=== PATIENT | female | born 1930 | race Two or more races ===

== ENCOUNTER 2018-03-31 12:34 | Inpatient (IN) | payer OTHER ==
[~2018-03-31] VITALS: Ht 142.2 cm; Wt 59.0 kg
[2018-03-31 12:40] VITALS: Ht 142.2 cm; Wt 59.0 kg
[2018-03-31 12:56] LABS: BASOPHIL % 1.1 % (0-2); PLATELET COUNT 156 x10^3mcL (130-400); RED CELL DISTRIBUTION WIDTH 14.1 % (11.5-14.5)
[2018-03-31 13:57] LABS: CALCIUM 8.7 mg/dL (8.5-10.1); CARBON DIOXIDE 30.3 mmol/L (21-32); CHLORIDE SERUM 104 mmol/L (98-107); CREATININE SERUM 0.7 mg/dL (0.6-1.0); GLUCOSE SERUM 124 mg/dL (74-106); POTASSIUM SERUM 4.1 mmol/L (3.5-5.1); SODIUM SERUM 139 mmol/L (136-145)
[2018-03-31 14:08] LABS: ALKALINE PHOSPHATASE 75 U/L (46-116); ALT/SGPT 20 U/L (14-59); AMYLASE 48 U/L (25-115); AST/SGOT 35 U/L (15-37); BILIRUBIN TOTAL 0.75 mg/dL (0.20-1.00); CHOLESTEROL 156 mg/dL (<200); HDL CHOLESTEROL 59 mg/dL (40-60); LIPASE 156 IU/L (73-393); MAGNESIUM 2.2 mg/dL (1.8-2.4); T4(THYROXINE) 5.5 ug/dL (4.7-13.3); TOTAL PROTEIN, SERUM 6.8 g/dL (6.4-8.2)
[2018-03-31 14:09] LABS: ALBUMIN 3.3 g/dL (3.4-5.0)
[2018-03-31 14:57] LABS: UA SPECIFIC GRAVITY 1.015 (1.005-1.035); microscopic required? YES; urine erythrocyte NEGATIVE (NEGATIVE)
[2018-03-31] MEDS ORDERED: ARICEPT10 MG PO (14:58)
[2018-03-31] MEDS ORDERED: LYRICA50 M1 PO (14:59)
[2018-03-31] MEDS ORDERED: CYMBALTA30 M1 PO (14:59)
[2018-03-31] MEDS ORDERED: BENAZEPRIL HYDR40 M1 PO (15:02)
[2018-03-31] MEDS ORDERED: CELEBREX200 MG PO (15:03)
[2018-03-31 15:13] LABS: AMPHETAMINE QUAL UR NONE DETECTED (See below)
[2018-03-31 16:04] LABS: CHOLESTEROL/HDL RATIO 2.8; PHOSPHOROUS 3.7 mg/dL (2.5-4.9); T3 TOTAL 0.86 ng/mL
[2018-03-31 16:15] LABS: FREE T4 0.75 ng/dL (0.76-1.46); FREE THYROXINE INDEX 2.5 ug/dL (1.4-4.5)
[2018-03-31 16:17] VITALS: BP 153/55
[2018-03-31 17:15] VITALS: BP 149/40
[2018-03-31 21:04] VITALS: BP 150/54
[2018-04-01 04:31] VITALS: BP 145/61
[2018-04-01 04:39] LABS: BASOPHIL % 0.7 % (0-2); PLATELET COUNT 140 x10^3mcL (130-400); RED CELL DISTRIBUTION WIDTH 14.2 % (11.5-14.5)
[2018-04-01 04:51] LABS: CHLORIDE SERUM 105 mmol/L (98-107); CREATININE SERUM 0.7 mg/dL (0.6-1.0); GLUCOSE SERUM 87 mg/dL (74-106); PHOSPHOROUS 3.1 mg/dL (2.5-4.9); POTASSIUM SERUM 3.3 mmol/L (3.5-5.1); SODIUM SERUM 140 mmol/L (136-145)
[2018-04-01 09:59] VITALS: BP 154/65
[2018-04-01 13:52] VITALS: BP 141/66
[2018-04-01 18:51] VITALS: BP 175/59
[2018-04-01 20:24] VITALS: BP 161/42
[2018-04-01 23:27] VITALS: BP 141/66
[2018-04-02 05:40] VITALS: BP 136/55
[2018-04-02 06:19] LABS: BASOPHIL % 0.8 % (0-2); PLATELET COUNT 143 x10^3mcL (130-400); RED CELL DISTRIBUTION WIDTH 13.8 % (11.5-14.5)
[2018-04-02 06:33] LABS: CALCIUM 8.8 mg/dL (8.5-10.1); CARBON DIOXIDE 30.4 mmol/L (21-32); CHLORIDE SERUM 103 mmol/L (98-107); CREATININE SERUM 0.6 mg/dL (0.6-1.0); GLUCOSE SERUM 85 mg/dL (74-106); MAGNESIUM 2.1 mg/dL (1.8-2.4); PHOSPHOROUS 3.5 mg/dL (2.5-4.9); POTASSIUM SERUM 3.6 mmol/L (3.5-5.1); SODIUM SERUM 138 mmol/L (136-145)
[2018-04-02 08:25] VITALS: BP 152/51
[2018-04-02 11:57] VITALS: BP 156/57
[2018-04-02 17:30] VITALS: BP 174/63
[2018-04-02 21:24] VITALS: BP 125/59
[2018-04-03 05:54] VITALS: BP 130/57
[2018-04-03 08:44] VITALS: BP 130/57
[2018-04-03 13:24] VITALS: BP 117/45
[2018-04-03 15:03] VITALS: BP 117/45
== END 2018-04-03 15:45 | disposition home or self-care (01) | DRG 242 ==
LOC: ED 12:34 → DU 15:14
PROVIDERS: Emergency Medicine; General Practice; Internal Medicine Clinical Cardiac Electrophysiology
PROC: 02HK3JZ Insertion of Pacemaker Lead into Right Ventricle, Percutaneous Approach (ICD-10-PCS; 2018-04-02)
PROC: 02H63JZ Insertion of Pacemaker Lead into Right Atrium, Percutaneous Approach (ICD-10-PCS; 2018-04-02)
PROC: 0JH606Z Insertion of Pacemaker, Dual Chamber into Chest Subcutaneous Tissue and Fascia, Open Approach (ICD-10-PCS; principal; 2018-04-02 15:00)
DX: I49.5 Sick sinus syndrome (principal); N17.0 Acute kidney failure with tubular necrosis; E44.0 Moderate protein-calorie malnutrition; R73.03 Prediabetes; R80.9 Proteinuria, unspecified; G90.9 Disorder of the autonomic nervous system, unspecified; Z68.24 Body mass index [BMI] 24.0-24.9, adult; F03.90 Unspecified dementia, unspecified severity, without behavioral disturbance, psychotic disturbance, mood disturbance, and anxiety
CPT/HCPCS: 82962; 83880; 84439; 97530-GP; C9113; J0461; J0690; J2001; J2060; J2250; J2310; J3010; J3370; J3490; J7030; Q0092; Q9967

== ENCOUNTER 2018-07-08 14:36 | Emergency (ER) | payer OTHER ==
[~2018-07-08] VITALS: Ht 55.9 cm; Wt 54.4 kg
[~2018-07-08 14:36] MED LIST: ARICEPT10 MG PO; BENAZEPRIL HYDR40 M1 PO; CELEBREX200 MG PO; CYMBALTA30 M1 PO; LYRICA50 M1 PO
[2018-07-08 16:59] VITALS: BP 145/80
== END 2018-07-08 17:25 | disposition home or self-care (01) ==
LOC: ED 14:36
DX: S01.81XA Laceration without foreign body of other part of head, initial encounter (principal); I10 Essential (primary) hypertension; W18.39XA Other fall on same level, initial encounter; Y93.89 Activity, other specified; Y92.098 Other place in other non-institutional residence as the place of occurrence of the external cause; Y99.8 Other external cause status
CPT/HCPCS: J2001

== ENCOUNTER 2018-07-10 09:04 | Emergency (ER) | payer OTHER ==
[~2018-07-10] VITALS: Ht 154.9 cm; Wt 54.4 kg
[2018-07-10 09:09] VITALS: BP 109/70; Ht 154.9 cm; Wt 54.4 kg
== END 2018-07-10 09:33 | disposition home or self-care (01) ==
LOC: ED 09:04
DX: S01.01XD Laceration without foreign body of scalp, subsequent encounter (principal); I10 Essential (primary) hypertension; F03.90 Unspecified dementia, unspecified severity, without behavioral disturbance, psychotic disturbance, mood disturbance, and anxiety; Z95.0 Presence of cardiac pacemaker; W18.39XD Other fall on same level, subsequent encounter

== ENCOUNTER 2018-07-19 10:49 | Emergency (ER) | payer OTHER ==
[~2018-07-19] VITALS: Ht 147.3 cm; Wt 54.4 kg
[2018-07-19 11:13] VITALS: Ht 147.3 cm; Wt 54.4 kg
[2018-07-19 12:58] VITALS: BP 100/62
== END 2018-07-19 12:59 | disposition home or self-care (01) ==
LOC: ED 10:49
DX: S01.01XD Laceration without foreign body of scalp, subsequent encounter (principal); I10 Essential (primary) hypertension; F03.90 Unspecified dementia, unspecified severity, without behavioral disturbance, psychotic disturbance, mood disturbance, and anxiety; X58.XXXD Exposure to other specified factors, subsequent encounter